=== PATIENT | female | born 1995 | race African-American/Black ===

== ENCOUNTER 2018-06-12 12:07 | Emergency (ER) | payer OTHER, SELFPAY ==
[2018-06-12 12:57] LABS: #Eosinphils 0.1 thou/uL (0.0-0.7); #Lymphocytes 1.4 thou/uL (1.20-3.40); #Monocytes 0.4 thou/uL (0.11-0.59); #Neutrophils 3.4 thou/uL (1.40-6.50); %Basophils 0.6 % (0.0-1.0); %Eosinophils 2.4 % (0.0-10.0); %Monocytes 7.8 % (0.0-10.0); %Neutrophils 63.1 % (42.0-75.0); Hemoglobin 11.9 g/dL (12.0-16.0); Mean Corpuscular HGB CONC 31.8 g/dL (32.0-36.0); Mean Corpuscular Hemoglobin 27.1 pg (27.0-31.0); Mean Corpuscular Volume 85.2 fL (78.0-98.0); Platelet Count 437 thou/uL (130-400); RBC Distribution Width 11.8 % (11.5-14.5); Red Blood Cell (RBC) Count 4.39 mill/uL (4.20-5.40); White Blood Cell (WBC) Count 5.4 thou/uL (4.8-10.8)
[2018-06-12 13:14] LABS: Bilirubin Negative (Negative); Blood, Urine Negative (Negative); Clarity CLEAR (Clear); Glucose, Urine (Dipstick) Negative (Negative); Leukocyte Negative (Negative); Nitrite Negative (Negative); Protein, Urine (Dipstick) Negative (Neg-Trace); Urobilinogen 0.2 mg/dL (0.2-1.0)
[2018-06-12 13:15] LABS: Pregnancy Test - Urine (BHCG) POSITIVE (Negative); Pregu Control Background? CLEAR/WHITE (CLR/WHITE); Pregu Control Bar Appear? YES (CONTROL BAR)
[2018-06-12 13:16] LABS: ALT (SGPT) 13 U/L (8-55); AST (SGOT) 15 U/L (5-34); Albumin 3.9 g/dL (3.5-5.0); Alkaline Phosphatase 55 U/L (40-150); Anion Gap 11 mmol/L (10-20); BUN (Urea Nitrogen) 6 mg/dL (7.0-18.7); Bilirubin, Total 0.5 mg/dL (0.2-1.2); Calc. Creatinine Clearance 0 mL/min (70-130); Calcium 9.1 mg/dL (7.8-10.44); Carbon Dioxide 21 mmol/L (22-29); Chloride 109 mmol/L (98-107); Estimated GFR-MDRD Greater than 90; Globulin 2.9 g/dL (2.4-3.5); Glucose 89 mg/dL (70-105); Potassium 3.7 mmol/L (3.5-5.1); Protein, Total 6.8 g/dL (6.0-8.3); Sodium 137 mmol/L (136-145)
--- NOTE | 2018-06-12 14:16 | ULT ---
PELVIC ULTRASOUND: DATE: 06/12/2018. HISTORY: Positive home test and vaginal bleeding. COMPARISON: None available. FINDINGS: Multiple transabdominal and endovaginal sonographic images of the pelvis are obtained. The uterus is retroverted. There is a small fluid collection seen within the endometrial canal likel y related to a gestational sac. There is a small echogenic focus seen within the fluid collection in the endometrial canal which could potentially represent a tiny pole measuring 0.19 cm. This i s too small to evaluate gestational age of the fetus. No yolk sac is visualized. The mean sac diame ter is 0.6 cm, which corresponds to gestational age by ultrasound of 5 weeks and 2 days. No he art tones are documented at this time. The right ovary measures 2.3 cm x 1.4 cm x 1.2 cm with the left ovary measuring 3.8 cm x 2.3 cm x 2.3 cm. There is a hypoechoic and slightly heterogeneous lesion seen within the left ovary measuring 1. 9 cm in maximal dimensions. This could represent corpus luteal cyst, but continued followup is recom mended. The right ovary has a normal sonographic appearance. Doppler evaluation of each ovary with spectral analysis and color flow evaluation demonstrates arteri al flow in each ovary. A small amount of free fluid is seen in the cul-de-sac. IMPRESSION: 1. Fluid collection within the endometrial canal with a tiny echogenic focus also seen. Findings ma y be related to an early intrauterine gestation, but this cannot be confirmed at this time and by jose n sac diameter the gestational age would be 5 weeks and 2 days. Findings are likely attributable to very early intrauterine gestation, but followup ultrasound examination in 1 week as well as serial be ta HCG levels is recommended as ectopic cannot be excluded based on sonographic evaluation. 2. Probable corpus luteal cyst left ovary, but followup evaluation is recommended. 3. Small amount of free fluid in the cul-de-sac. POS: [facility]
== END 2018-06-12 14:08 | disposition home or self-care (01) ==
LOC: ERS 12:07
DX: O20.0 Threatened abortion (principal); O99.351 Diseases of the nervous system complicating pregnancy, first trimester; G40.909 Epilepsy, unspecified, not intractable, without status epilepticus; O99.511 Diseases of the respiratory system complicating pregnancy, first trimester; J45.909 Unspecified asthma, uncomplicated; I10 Essential (primary) hypertension; Z86.73 Personal history of transient ischemic attack (TIA), and cerebral infarction without residual deficits; Z79.899 Other long term (current) drug therapy; Z3A.01 Less than 8 weeks gestation of pregnancy
CPT/HCPCS: 36415; 76856; 80053; 81003; 81025; 84702; 85025; 86900; 86901

== ENCOUNTER 2018-08-29 18:31 | Emergency (ER) | payer MEDICAID, OTHER ==
[2018-08-29 19:10] LABS: Bilirubin Negative (Negative); Blood, Urine Negative (Negative); Clarity CLOUDY (Clear); Glucose, Urine (Dipstick) Negative (Negative); Leukocyte Negative (Negative); Nitrite Negative (Negative); Protein, Urine (Dipstick) Negative (Neg-Trace)
[2018-08-29 19:39] LABS: #Basophils 0.1 thou/uL (0.0-0.2); #Eosinphils 0.1 thou/uL (0.0-0.7); #Lymphocytes 1.4 thou/uL (1.20-3.40); #Monocytes 0.5 thou/uL (0.11-0.59); #Neutrophils 4.9 thou/uL (1.40-6.50); %Basophils 0.7 % (0.0-1.0); %Eosinophils 1.6 % (0.0-10.0); %Lymphocytes 20.5 % (21.0-51.0); %Monocytes 7.1 % (0.0-10.0); %Neutrophils 70.2 % (42.0-75.0); Hemoglobin 11.3 g/dL (12.0-16.0); Mean Corpuscular HGB CONC 32.8 g/dL (32.0-36.0); Mean Corpuscular Hemoglobin 27.8 pg (27.0-31.0); Mean Corpuscular Volume 84.6 fL (78.0-98.0); Mean Platelet Volume 7.2 fL (7.4-10.4); Platelet Count 376 thou/uL (130-400); Red Blood Cell (RBC) Count 4.08 mill/uL (4.20-5.40)
[2018-08-29 19:58] LABS: ALT (SGPT) 18 U/L (8-55); AST (SGOT) 16 U/L (5-34); Albumin 3.5 g/dL (3.5-5.0); Alkaline Phosphatase 45 U/L (40-150); Anion Gap 9 mmol/L (10-20); BUN (Urea Nitrogen) 8 mg/dL (7.0-18.7); Bilirubin, Total 0.2 mg/dL (0.2-1.2); Calc. Creatinine Clearance 0 mL/min (70-130); Calcium 9.3 mg/dL (7.8-10.44); Carbon Dioxide 26 mmol/L (22-29); Chloride 107 mmol/L (98-107); Estimated GFR-MDRD Greater than 90; Globulin 3.2 g/dL (2.4-3.5); Lipase 17 U/L (8-78); Potassium 3.8 mmol/L (3.5-5.1); Protein, Total 6.7 g/dL (6.0-8.3); Sodium 138 mmol/L (136-145)
[2018-08-29 20:01] LABS: Glucose 57 mg/dL (70-105)
[2018-08-29] MEDS ORDERED: Acetaminophen 500 MG TAB ONE (20:04)
--- NOTE | 2018-08-29 22:30 | ULT ---
OB ULTRASOUND: 08/29/18 HISTORY: Pelvic pain. Real time imaging of the pelvis shows a single viable intrauterine in a predominantly verte x or cephalic presentation. Placenta is anterior in location. Along the more anterior margin of the u terine wall directly beneath the placenta is a 3.7 x 6.2 cm area that is somewhat isoechoic but appea rs separate from the placenta. There does appear to be some flow demonstrate in some areas of this al though it is not all contiguous. I favor that this is probably a contraction, but I cannot exclude th is is an acute abruption. There is no previa demonstrated. Amniotic fluid is adequate for stage of pr egnancy. measurements are follows: BPH 3.2 cm 16 weeks, 0 days Head circumference 11.7 cm 15 weeks, 5 days Abdominal circumference 10.5 cm 16 weeks, 3 days Femur length 2.1 cm 16 weeks, 2 days Evaluation of anatomy was slightly limited but no anomalies detected on this emergent exa m. Three vessel cord and some of the intracranial structures were not well visualized. IMPRESSION: 1. Single viable intrauterine in a more cephalic presentation. Overall measurements co rresponding to a gestational age of 16 weeks, 1 day. Estimated date of delivery is 02/12/19. 2. heart rate 149 beats per minute. 3. Placenta which is anterior in location. No evidence of previa. Along the anterior uterine wal l directly beneath the placenta is an area of altered echogenicity somewhat isoechoic to the placenta and separate. I would favor this probably being a contraction but I cannot exclude this is an abrupt ion. Findings were discussed with Dr. Pennington. POS: [facility]
== END 2018-08-29 22:20 | disposition home or self-care (01) ==
LOC: ERS 18:31
DX: O99.89 Other specified diseases and conditions complicating pregnancy, childbirth and the puerperium (principal); R10.30 Lower abdominal pain, unspecified; O99.352 Diseases of the nervous system complicating pregnancy, second trimester; G40.909 Epilepsy, unspecified, not intractable, without status epilepticus; O99.512 Diseases of the respiratory system complicating pregnancy, second trimester; J45.909 Unspecified asthma, uncomplicated; Z3A.16 16 weeks gestation of pregnancy; Z86.73 Personal history of transient ischemic attack (TIA), and cerebral infarction without residual deficits; Z79.899 Other long term (current) drug therapy
CPT/HCPCS: 36415; 36416; 76815; 80053; 81003; 83690; 84702; 85025; 86900; 86901

== ENCOUNTER 2018-11-10 13:51 | Day surgery (SDC) | payer OTHER ==
[2018-11-10 14:31] VITALS: BP 118/57; TEMP 99.1
[2018-11-10 14:43] VITALS: BMI 34.5
[2018-11-10] MEDS ORDERED: Ondansetron ODT 4 MG TAB PO SCH (15:30)
--- NOTE | 2018-11-10 17:51 | ER ---
DATE OF SERVICE: 11/10/2018 PRESENTING COMPLAINT: Nausea with one episode of emesis at 27-week gestation. HISTORY OF PRESENT ILLNESS: The patient is a 23-year-old, 2, para 1, x1, who sees Dr. Storm. She reports one episode of nausea with mild emesis this afternoon. She reports some mild headache. She reports that she may have had eclampsia versus seizure disorder with her last . 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 PAST MEDICAL HISTORY: Asthma and epilepsy. SURGICAL HISTORY: . ALLERGIES: AUGMENTIN, FLAGYL, ZITHROMAX. MEDICATIONS: 1. Advair. 2. Albuterol. 3. Butalbital. 4. Nifedipine. 5. Raglan. SOCIAL HISTORY: Denies tobacco, alcohol, or IV drug abuse. FAMILY HISTORY: Noncontributory. REVIEW OF SYSTEMS: Noncontributory. LABORATORY DATA: Blood type A positive, antibody negative. Pap negative. Rubella immune. VDRL nonreactive. Hepatitis B, GC, Chlamydia are negative. PHYSICAL EXAMINATION: GENERAL: Black female, resting comfortably, in no acute distress. VITAL SIGNS: Pulse 85, respirations 18, temperature 97.6, blood pressure 118/72. HEENT: Within normal limits. LUNGS: Clear to auscultation bilaterally. HEART: Regular rate and rhythm. ABDOMEN: Soft, nontender in all four quadrants. No rebound or guarding. PELVIC: Vulva is without lesions. Vaginal exam deferred. EXTREMITIES: Without clubbing, cyanosis, or edema. FHTs are 140s. Positive acceleration, no deceleration. No contractions. Category 1 heart rate tracing. The patient was administered Zofran x1 and p.o. liquids. She tolerated this well without emesis. No evidence of preeclampsia was noted. She is to be discharged home with ER precautions, and follow up at [facility] as scheduled in 1 week. Job ID: [id number]
== END 2018-11-10 17:30 | disposition home or self-care (01) ==
LOC: L&D/OP 13:51
PROVIDERS: ATTEND Obstetrics & Gynecology
DX: O21.2 Late vomiting of pregnancy (principal); O99.012 Anemia complicating pregnancy, second trimester; D64.89 Other specified anemias; O99.512 Diseases of the respiratory system complicating pregnancy, second trimester; J45.909 Unspecified asthma, uncomplicated; O99.352 Diseases of the nervous system complicating pregnancy, second trimester; G40.909 Epilepsy, unspecified, not intractable, without status epilepticus; Z3A.27 27 weeks gestation of pregnancy; Z88.1 Allergy status to other antibiotic agents; Z88.8 Allergy status to other drugs, medicaments and biological substances; Z79.82 Long term (current) use of aspirin; Z79.51 Long term (current) use of inhaled steroids; Z79.899 Other long term (current) drug therapy; Z98.890 Other specified postprocedural states
CPT/HCPCS: 99282; Q0162

== ENCOUNTER 2018-12-09 23:56 | Day surgery (SDC) | payer OTHER ==
[2018-12-10 01:04] LABS: Bilirubin Negative (Negative); Blood, Urine Negative (Negative); Clarity CLEAR (Clear); Glucose, Urine (Dipstick) Negative (Negative); Leukocyte Negative (Negative); Nitrite Negative (Negative); Protein, Urine (Dipstick) Negative (Neg-Trace); Specific Gravity, Urine 1.018 (1.002-1.036)
--- NOTE | 2018-12-10 02:44 | SS ---
DATE OF ADMISSION: 12/09/2018 DATE OF DISCHARGE: 12/10/2018 REGULAR PHYSICIAN: Huyen Storm DO. EVALUATING PHYSICIAN: Salvatore Triana MD. CHIEF COMPLAINT: Pain in the vagina, lower abdominal discomfort. HISTORY OF PRESENT ILLNESS: Ms. Nieto is a 23-year-old black, G2, P1-0-0-1 with an estimated date of confinement of 02/10/2019, who presents complaining of a 24-hour history of pain extending into her vagina as well as lower abdominal discomfort. She denies regular contractions, loss of fluid, or vaginal bleeding. Her care has been with Dr. Storm. PAST OBSTETRICAL HISTORY: Includes a reportedly at term that was complicated by a seizure one week . PAST MEDICAL HISTORY: Includes hypertension and asthma. PAST SURGICAL HISTORY: Includes section as above, hernia, and PE tubes in her ears. CURRENT MEDICATIONS: 1. vitamins. 2. Procardia 30 mg daily. 3. Advair on a p.r.n. basis. ALLERGIES: INCLUDE AUGMENTIN, ZITHROMAX, CLINDAMYCIN, AND FLAGYL. SOCIAL HISTORY: Denies tobacco, alcohol, or drug use. FAMILY HISTORY: Unremarkable. REVIEW OF SYSTEMS: Denies nausea, vomiting, fever, chills, ruptured membranes, vaginal bleeding, or change in bowel or bladder habits. PHYSICAL EXAMINATION: VITAL SIGNS: In triage, her blood pressures are 129/70 and 137/65. She is afebrile. GENERAL: She is pleasant and in no acute distress. ABDOMEN: Soft, nontender, and gravid. PELVIC: Shows the pelvic arch to be flat, but her cervix is closed and long. heart rate tracing is stable and reassuring. No significant uterine contractions are seen. Urinalysis returns with a specific gravity of 1.018 with negative protein, negative glucose, negative ketones, negative blood, negative nitrites, and negative leukocyte esterase. ASSESSMENT: 1. A 31-1/7 week intrauterine . 2. No evidence of labor. 3. No evidence of urinary tract infection. PLAN: The patient will be discharged to home. The nature of round ligament pain was discussed with her in detail. She can use Tylenol at home on a p.r.n. basis and she can also use warm tub soaks as well as a heating pad low on her back. She understands all the above and is discharged home in good condition. Job ID: [id number]
== END 2018-12-10 01:39 | disposition home or self-care (01) ==
LOC: L&D/OP 23:56
PROVIDERS: ATTEND Obstetrics & Gynecology
DX: O99.89 Other specified diseases and conditions complicating pregnancy, childbirth and the puerperium (principal); R10.2 Pelvic and perineal pain; R10.30 Lower abdominal pain, unspecified; O16.3 Unspecified maternal hypertension, third trimester; O99.513 Diseases of the respiratory system complicating pregnancy, third trimester; J45.909 Unspecified asthma, uncomplicated; Z3A.31 31 weeks gestation of pregnancy; Z79.899 Other long term (current) drug therapy; Z88.0 Allergy status to penicillin; Z88.1 Allergy status to other antibiotic agents
CPT/HCPCS: 81003; 99282

== ENCOUNTER 2019-01-19 10:04 | Inpatient (IN) | payer OTHER ==
[~2019-01-19 10:04] MED LIST: Dexamethasone 20 MG/5 ML VIAL ONE; Ketorolac Tromethamine 30 MG/ML VIAL ONE; Ondansetron PF 4 MG/2 ML Vial ONE; PHENYLEPHRINE-NS 100 MCG/ML 10 ML SYRINGE ONE; ePHEDrine 50 MG/ML VIAL ONE
[2019-01-19] MEDS ORDERED: Butorphanol Tartrate 1 MG/ML VIAL SLOW IVP PRN (10:28)
[2019-01-19] MEDS ORDERED: Promethazine HCl 25 MG/ML VIAL IM PRN ×2 (10:28→13:44)
[2019-01-19] MEDS ORDERED: Ondansetron PF 4 MG/2 ML Vial IVP PRN ×3 (10:28→15:02)
[2019-01-19] MEDS ORDERED: Acetaminophen 500 MG TAB PO PRN (10:28)
[2019-01-19] MEDS ORDERED: Lactated Ringer's 1,000 ML IV SCH (10:30)
[2019-01-19] MEDS ORDERED: Bicitra 30 ML UDCUP PO SCH (10:30)
--- NOTE | 2019-01-19 10:34 | PDOC.LDHP ---
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 Current gestational age (weeks): 37 Due date: 02/09/19 Dating criteria: first trimester ultrasound Grav: 2 Para: 1 OB History Details: LTCS x1 for failed induction - also PP PRES syndrome/eclampsia Current complications: hypertension Abnormal US findings: Yes (EIF noted on MFM sono, echo and remainder anatomy wnl ) Past Medical History: Anemia, H/O PRES/eclampsia Current medications: pre- vitamins, iron, other (procardia XL 30 mg) Previous surgical history: low tranverse CS Allergies/Adverse Reactions: Allergies Allergy/AdvReac Type Severity Reaction Status Date / Time amoxicillin trihydrate Allergy Verified 01/19/19 10:42 [From Augmentin] azithromycin [From Zithromax] Allergy Verified 01/19/19 10:42 metronidazole [From Flagyl] Allergy Severe Verified 01/19/19 10:42 Hives potassium clavulanate Allergy Verified 01/19/19 10:42 [From Augmentin] Social history: none - Physical Exam Vital signs reviewed and normal: yes General: NAD Heart: RRR Lungs: nonlabored breathing Abdomen: gravid Extremeties: no edema FHT: category 1 (130s, mod wilbert, +accels, no decels) [place] contractions every: none - OB Labs Blood type: A RH: positive Antibody Screen: negative HIV: negative RPR: negative HEPSAg: negative 1 hour GCT: negative GBS: positive Urine drug screen: negative Rubella: immune Additional Labs: SS wnl Heterozygous 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 Monitor BPs. Continue baby ASA due to h/o PP eclampsia and PRES syndrome
[2019-01-19] MEDS ORDERED: CEFAZOLIN 2 GM in Premix Bag 1 BAG IVPB SCH (10:45)
[2019-01-19 11:10] VITALS: BMI 34.9
[2019-01-19 11:44] LABS: Hemoglobin 11.4 g/dL (12.0-16.0); Mean Corpuscular HGB CONC 31.7 g/dL (32.0-36.0); Mean Corpuscular Hemoglobin 26.9 pg (27.0-31.0); Mean Corpuscular Volume 84.7 fL (78.0-98.0); Platelet Count 339 thou/uL (130-400); RBC Distribution Width 12.3 % (11.5-14.5); Red Blood Cell (RBC) Count 4.23 mill/uL (4.20-5.40); White Blood Cell (WBC) Count 7.4 thou/uL (4.8-10.8)
[2019-01-19] MEDS ORDERED: Fentanyl 100 MCG/2 ML VIAL ONE (11:54)
[2019-01-19] MEDS ORDERED: MORPHINE 5 MG/10 ML PF VIAL ONE (11:54)
[2019-01-19] MEDS ORDERED: Ondansetron PF 4 MG/2 ML Vial ONE ×2 (11:55)
[2019-01-19] MEDS ORDERED: PHENYLEPHRINE-NS 100 MCG/ML 10 ML SYRINGE ONE (11:55)
[2019-01-19] MEDS ORDERED: Ketorolac Tromethamine 30 MG/ML VIAL ONE (11:55)
[2019-01-19] MEDS ORDERED: Oxytocin 10 UNITS/ML VIAL ONE (11:55)
[2019-01-19] MEDS ORDERED: ePHEDrine/0.9% NaCl/PF SYRINGE 50 mg/10 ml ONE (11:55)
[2019-01-19 12:13] LABS: ALT (SGPT) 19 U/L (8-55); AST (SGOT) 18 U/L (5-34); Albumin 3.6 g/dL (3.5-5.0); Alkaline Phosphatase 144 U/L (40-150); Anion Gap 12 mmol/L (10-20); BUN (Urea Nitrogen) 7 mg/dL (7.0-18.7); Bilirubin, Total 0.5 mg/dL (0.2-1.2); Calc. Creatinine Clearance 187 mL/min (70-130); Calcium 9.1 mg/dL (7.8-10.44); Carbon Dioxide 23 mmol/L (22-29); Chloride 105 mmol/L (98-107); Estimated GFR-MDRD Greater than 90; Globulin 3.1 g/dL (2.4-3.5); Glucose 78 mg/dL (70-105); Potassium 3.5 mmol/L (3.5-5.1); Protein, Total 6.7 g/dL (6.0-8.3); Sodium 136 mmol/L (136-145)
[2019-01-19 12:27] LABS: HBSAg Index 0.31 S/CO (0-0.99); HIV (1/2) Antibody/Antigen Non-Reactive (NonReactive); HIV 1/2 INDEX 0.14 S/CO (<1.00); Hep B Surf Ag Non-Reactive S/CO (NonReactive); Syphilis Antibody Nonreactive (Nonreactive); Syphilis Antibody Index 0.02 S/CO (<1.00 Non-Reactive)
[2019-01-19] MEDS ORDERED: Dexamethasone 4 mg/ml Vial ONE (13:22)
--- NOTE | 2019-01-19 13:32 | PDOC.OPDEL ---
OB Operative/Delivery Note Delivery Dr/Surgeon: Huyen Storm DO Assist: Meera Saenz PA-C; Bill Starr MD Pre-Delivery Diagnosis: scheduled section Procedure/Post Delivery Dx: repeat low transverse CS Weeks gestation: 37 Anesthesia: spinal - Findings A Sex: male - 1 min: 8 - 5 min: 8 - Additional Findings/Plan Placenta delivered: spontaneous findings: low transverse hysterotomy without extension, normal uterus, normal tubes, normal ovaries, other (4-5 cm uterine window noted prior to hysterotomy) Estimated blood loss: EBL 500 cc; QBL 430 cc Compilations/Other Findings: Thin adhesions from uterus to dome of bladder. in cephalic presentation Clear amniotic fluid Normal placenta transferred to NICU Post delivery plan: routine recovery
[2019-01-19] MEDS ORDERED: Eucerin (Mineral Oil/Petrolatum,White) 30 gm Jar TOP PRN (13:44)
[2019-01-19] MEDS ORDERED: Naloxone HCl 0.4 mg/ml Vial IVP PRN ×2 (13:44)
[2019-01-19] MEDS ORDERED: L&D-Morphine 4 MG/ML VIAL SLOW IVP PRN (13:44)
[2019-01-19] MEDS ORDERED: Naloxone HCl 0.4 mg/ml Vial IV PRN (13:44)
[2019-01-19] MEDS ORDERED: Ondansetron HCl/PF 4 MG/2 ML Vial IVP PRN (13:44)
[2019-01-19] MEDS ORDERED: Meperidine HCl/PF 25 MG/ML VIAL SLOW IVP PRN (13:44)
[2019-01-19] MEDS ORDERED: diphenhydrAMINE 50 MG/ML VIAL IVP PRN (13:44)
[2019-01-19] MEDS ORDERED: Promethazine HCl 25 MG SUPP PR PRN (13:44)
[2019-01-19] MEDS ORDERED: HYDROmorphone 2 MG/ML VIAL SLOW IVP PRN (13:44)
[2019-01-19] MEDS ORDERED: Communication Order-Pharmacy FS SCH (13:45)
[2019-01-19] MEDS ORDERED: Lanolin Ointment 7 GM TUBE TOP PRN (15:02)
[2019-01-19 15:33] LABS: Bilirubin Negative (Negative); Blood, Urine Negative (Negative); Clarity CLEAR (Clear); Glucose, Urine (Dipstick) Negative (Negative); Leukocyte Negative (Negative); Nitrite Negative (Negative); Protein, Urine (Dipstick) Negative (Neg-Trace); Specific Gravity, Urine 1.019 (1.002-1.036); pH, Urine 6.5 (5.0-9.0)
[2019-01-19 15:34] LABS: Bacteria/HPF None Seen HPF (None Seen); Hyaline Casts/LPF 0-3 HYALINE CAST LPF (0-3 Hyaline); RBC/HPF 0-3 HPF (0-3); Squamous Epithelial 0-3 HPF (0-3); WBC/HPF 0-3 HPF (0-3)
[2019-01-19] MEDS ORDERED: Sodium Chloride 0.9% 10 ML ONE (16:27)
[2019-01-19] MEDS ORDERED: Ketorolac Tromethamine 30 MG/ML VIAL IVP PRN (16:38)
[2019-01-19] MEDS: Simethicone Chewable 80 MG TAB PO PRN (21:28)
[2019-01-19] MEDS ORDERED: Ibuprofen 800 MG TAB PO SCH (22:00)
[2019-01-19] MEDS: Docusate Calcium (SURFAK) 240 MG CAP PO SCH (23:00)
[2019-01-19] MEDS: Ferrous Sulfate 325 MG TAB PO SCH (23:00)
[2019-01-20] MEDS ORDERED: Sodium Chloride 0.9% 10 ML ONE (03:07)
[2019-01-20 07:22] LABS: Hemoglobin 10.2 g/dL (12.0-16.0); Mean Corpuscular HGB CONC 33.7 g/dL (32.0-36.0); Mean Corpuscular Hemoglobin 28.5 pg (27.0-31.0); Mean Corpuscular Volume 84.7 fL (78.0-98.0); Mean Platelet Volume 8.3 fL (7.4-10.4); Platelet Count 289 thou/uL (130-400); White Blood Cell (WBC) Count 12.1 thou/uL (4.8-10.8)
--- NOTE | 2019-01-20 08:11 | OP ---
DATE OF PROCEDURE: 01/19/2019 PREOPERATIVE DIAGNOSES: 1. A 37 week intrauterine . 2. Chronic hypertension. 3. History of eclampsia with posterior reversible encephalopathy syndrome. 4. Heterozygous carrier for Fanconi anemia. 5. Asthma. 6. History of low-transverse delivery x1. Declines trial of labor. POSTOPERATIVE DIAGNOSES: 1. A 37 week intrauterine . 2. Chronic hypertension. 3. History of eclampsia with posterior reversible encephalopathy syndrome. 4. Heterozygous carrier for Fanconi anemia. 5. Asthma. 6. History of low-transverse delivery x1. Declines trial of labor. PROCEDURE PERFORMED: Repeat low-transverse delivery via Pfannenstiel skin incision. ASSISTS: 1. Meera Saenz PA-C. 2. Bill Starr MD. ANESTHESIA: Spinal. COMPLICATIONS: None. QBL: 430 mL. FINDINGS: Dense adhesions along the fascia, thin adhesions from the lower uterine segment to the dome of the bladder and normal-appearing uterus, fallopian tubes , and ovaries bilaterally with the exception of a 4-5 cm uterine window at the previous hysterotomy site. Clear amniotic fluid. Viable male infant in cephalic presentation, apgras 8/8. Normal-appearing placenta. INDICATIONS FOR THE PROCEDURE: Ms. 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 The patient was evaluated by MFM due to her previous history and due to chronic hypertension, was recommended to have a delivery at 37 weeks. The patient was counseled on delivery options and preferred a repeat delivery rather than a trial of labor and was counseled on such. DESCRIPTION OF PROCEDURE: The patient was brought to the operating room, she was placed under spinal anesthesia and placed in supine position with a leftward tilt. A Shea catheter was placed. She was given Ancef for a surgical prophylaxis. A Pfannenstiel skin incision was made removing the previous scar tissue. This was taken down to the underlying fascia layer. The fascia was then extended bilaterally using Gupta scissors. The superior aspect of fascial incision was grasped using Alexandre clamps and dissected free from the underlying rectus muscles using Gupta scissors. The same was done to the inferior aspect of the fascial incision. The peritoneum was then elevated with hemostats and incised and the incision was extended using blunt dissection. An Sky O retractor was placed into the abdomen. There was a uterine window noted. A bladder flap was created using Metzenbaum scissors. A low transverse hysterotomy was made. The hysterotomy was extended with blunt dissection. Amniotic membranes were ruptured noting clear amniotic fluid. was delivered in cephalic presentation. The cord was clamped and cut. was handed to the waiting neonatology team. Cord sample and cord blood were obtained. Cord sample was obtained for testing of the for Fanconi anemia carrier screening since the father of the baby was not able to be tested. The placenta was delivered spontaneously intact. The uterus was cleared of all clot and debris. The hysterotomy was closed in a running locking fashion. There was a small area along the right aspect that required an additional [id number] stitch for hemostasis. The pelvis was irrigated and cleared of all clot and debris. The fallopian tubes and ovaries were evaluated and normal in appearance. The Sky O retractor was removed from the abdomen. The peritoneum was closed in a running fashion using 2-0 chromic. The rectus abdominis muscles were evaluated and hemostatic. The fascia was closed from bilateral apices meeting in the midline using 0 Monocryl. The subcutaneous layer was copiously irrigated and hemostatic with the use of Bovie. The subcutaneous layer was closed using 0 Vicryl and the skin was closed using 4-0 Monocryl and Dermabond. The patient tolerated the procedure well. There were no complications. The mother was transferred to routine recovery. was transferred to the NICU due to respiratory distress at , possibly transient tachypnea of the . All counts were correct x 3. Job ID: [id number] [facility]
--- NOTE | 2019-01-20 08:32 | PDOC.PP ---
Post Progress Note Post Day #: 1 Subjective: Pt seen and evaluated PPD1. Patient having mild abdominal soreness. Minimal lochia. She is up and ambulatory. NO problems urination. She is eating and drinking. Baby is in the NICU so she is pumping breast milk at this time. PO intake tolerated: yes Flatus: yes Ambulation: yes Vital Signs (12 hours) Temp Pulse Resp BP Pulse Ox 01/20/19 08:14 97.6 F 72 20 103/60 94 L 01/20/19 04:30 97.7 F 73 18 108/61 01/20/19 00:40 98.0 F 65 18 113/56 L 96 Weight Weight 191 lb - Physical Examination General: NAD Respiratory: non-labored breathing Abdominal: + bowel sounds, lochia, no distention, appropriately TTP Fundus firm & at: 2 cm below umbilicus Extremities: negative homans (B) Skin: CS incision dry & intact, no rash Neurological: no gross focal deficits Psychiatric: A&Ox3, normal affect Result Diagrams: 01/20/19 07:02 01/19/19 11:32 Additional Labs: Post Labs Blood Type A POSITIVE 01/19/19 11:32 Hep Bs Antigen Non-Reactive S/CO (NonReactive) 01/19/19 11:32 (1) delivery delivered Code(s): O82 - ENCOUNTER FOR DELIVERY WITHOUT INDICATION Status: Acute - Assessment/Plan PPD1. PT is doing well. VSSAF. Pt is normotensive. Her CBC was reviewed and H&H are stable. PT is pumping at this time as baby is in the NICU. Pain is well controlled at this time.
[2019-01-20] MEDS ORDERED: Adacel (T-DAP) 0.5 ML SYRINGE IM ONE (09:00)
[2019-01-20] MEDS: Ferrous Sulfate 325 MG TAB PO SCH ×2 (09:30→22:16)
[2019-01-20] MEDS: NIFEdipine XL 30 MG TAB PO SCH (09:44)
[2019-01-20] MEDS: Docusate Calcium (SURFAK) 240 MG CAP PO SCH ×2 (09:45→23:42)
[2019-01-20] MEDS: HYDROcodone/Acetaminophen 5/325 mg Tablet PO PRN ×2 (13:50→20:14)
[2019-01-20] MEDS: Simethicone Chewable 80 MG TAB PO PRN (13:51)
[2019-01-20] MEDS: Ibuprofen 800 MG TAB PO SCH ×2 (15:25→23:42)
[2019-01-21] MEDS: HYDROcodone/Acetaminophen 5/325 mg Tablet PO PRN ×4 (04:40→23:02)
[2019-01-21] MEDS: Ibuprofen 800 MG TAB PO SCH ×3 (06:29→23:04)
--- NOTE | 2019-01-21 08:05 | PDOC.PP ---
Post Progress Note Post Day #: 2 Subjective: Pain minimal-moderate. Ambulating. Voiding. Pumping. Minimal lochia. PO intake tolerated: yes Flatus: yes Ambulation: yes Vital Signs (12 hours) Temp Pulse Resp BP 01/21/19 04:35 97.6 F 67 18 111/66 01/20/19 23:45 97.9 F 64 18 112/60 Weight Weight 191 lb - Physical Examination General: NAD Cardiovascular: RRR Respiratory: non-labored breathing Abdominal: no distention, appropriately TTP Fundus firm & at: below umbilicus Extremities: negative homans (B) Skin: no rash Neurological: no gross focal deficits Psychiatric: normal affect Result Diagrams: 01/20/19 07:02 01/19/19 11:32 Additional Labs: Post Labs Blood Type A POSITIVE 01/19/19 11:32 Hep Bs Antigen Non-Reactive S/CO (NonReactive) 01/19/19 11:32 (1) Chronic hypertension Code(s): I10 - ESSENTIAL (PRIMARY) HYPERTENSION Status: Acute (2) delivery delivered Code(s): O82 - ENCOUNTER FOR DELIVERY WITHOUT INDICATION Status: Acute - Assessment/Plan PPD2 VSSAF BPs wnl. Continue Procardia. No preE sx. Restart ASA 81 mg due to h/o PP eclampsia. Infant still in NICU, plan to continue PP care and d/c in 1-2 days due to in NICU.
[2019-01-21] MEDS: NIFEdipine XL 30 MG TAB PO SCH (10:15)
[2019-01-21] MEDS: Ferrous Sulfate 325 MG TAB PO SCH ×2 (10:16→22:48)
[2019-01-21] MEDS: Aspirin 81 mg Enteric Coated Tablet PO SCH (10:16)
[2019-01-21] MEDS: Docusate Calcium (SURFAK) 240 MG CAP PO SCH ×2 (10:16→23:03)
[2019-01-22] MEDS: Ibuprofen 800 MG TAB PO SCH ×4 (01:09→21:39)
[2019-01-22] MEDS: HYDROcodone/Acetaminophen 5/325 mg Tablet PO PRN ×3 (03:07→19:41)
--- NOTE | 2019-01-22 08:15 | PDOC.PP ---
Post Progress Note Post Day #: 3 Subjective: Minimal pain or lochia. BPs wnl. Denies preE sx. Pumping and breast feeding. Infant still in NICU. PO intake tolerated: yes Flatus: yes Ambulation: yes Vital Signs (12 hours) Temp Pulse Resp BP Pulse Ox 01/21/19 23:03 98.1 F 98 18 129/79 99 Weight Weight 191 lb - Physical Examination General: NAD Cardiovascular: RRR Respiratory: non-labored breathing Abdominal: no distention, appropriately TTP Fundus firm & at: below umbilicus Extremities: negative homans (B) Skin: CS incision dry & intact, no rash Neurological: no gross focal deficits Psychiatric: A&Ox3, normal affect Result Diagrams: 01/20/19 07:02 01/19/19 11:32 Additional Labs: Post Labs Blood Type A POSITIVE 01/19/19 11:32 Hep Bs Antigen Non-Reactive S/CO (NonReactive) 01/19/19 11:32 (1) Chronic hypertension Code(s): I10 - ESSENTIAL (PRIMARY) HYPERTENSION Status: Acute (2) delivery delivered Code(s): O82 - ENCOUNTER FOR DELIVERY WITHOUT INDICATION Status: Acute - Assessment/Plan PPD3 VSSAF Continue Procardia XL 30 mg QD and ASA 81 mg due to h/o PP eclampsia Plan for d/c tomorrow due to still in NICU and breast feeding.
[2019-01-22] MEDS: Aspirin 81 mg Enteric Coated Tablet PO SCH (08:55)
[2019-01-22] MEDS: Docusate Calcium (SURFAK) 240 MG CAP PO SCH ×2 (08:55→21:39)
[2019-01-22] MEDS: Ferrous Sulfate 325 MG TAB PO SCH ×2 (08:56→21:38)
[2019-01-22] MEDS: NIFEdipine XL 30 MG TAB PO SCH (09:00)
[2019-01-23] MEDS: HYDROcodone/Acetaminophen 5/325 mg Tablet PO PRN ×2 (01:46→06:27)
[2019-01-23] MEDS: Ibuprofen 800 MG TAB PO SCH ×2 (06:27→14:03)
[2019-01-23 08:07] VITALS: BP 113/61; TEMP 97.9
--- NOTE | 2019-01-23 08:25 | PDOC.PP ---
Post Progress Note Post Day #: 4 Subjective: Minimal-moderate pain with activity. Denies F/C. No preE sx. BPs wnl. Pumping. Infant now in NBN. Minimal lochia. PO intake tolerated: yes Flatus: yes Ambulation: yes Vital Signs (12 hours) Temp Pulse Resp BP Pulse Ox 01/23/19 08:06 97.9 F 75 20 113/61 96 Weight Weight 191 lb - Physical Examination General: NAD Cardiovascular: RRR Respiratory: non-labored breathing Abdominal: no distention, appropriately TTP Fundus firm & at: below umbilicus Extremities: negative homans (B) Skin: CS incision dry & intact, no rash Neurological: no gross focal deficits Psychiatric: A&Ox3, normal affect Result Diagrams: 01/20/19 07:02 01/19/19 11:32 Additional Labs: Post Labs Blood Type A POSITIVE 01/19/19 11:32 Hep Bs Antigen Non-Reactive S/CO (NonReactive) 01/19/19 11:32 (1) Chronic hypertension Code(s): I10 - ESSENTIAL (PRIMARY) HYPERTENSION Status: Acute (2) delivery delivered Code(s): O82 - ENCOUNTER FOR DELIVERY WITHOUT INDICATION Status: Acute - Assessment/Plan PPD4 VSSAF Meeting requirements for d/c and not infant in NBN. Plan for d/c home today with f/u 2 weeks incision and BP check. Continue Procardia and ASA PP due to hx.
[2019-01-23] MEDS: Docusate Calcium (SURFAK) 240 MG CAP PO SCH (09:19)
[2019-01-23] MEDS: Aspirin 81 mg Enteric Coated Tablet PO SCH (09:19)
[2019-01-23] MEDS: NIFEdipine XL 30 MG TAB PO SCH (09:19)
[2019-01-23] MEDS: Ferrous Sulfate 325 MG TAB PO SCH (09:23)
== END 2019-01-23 15:25 | disposition home or self-care (01) | DRG 787 ==
LOC: L&D 10:04 → 3SW 15:57
PROVIDERS: ADMIT Obstetrics & Gynecology; ATTEND Obstetrics & Gynecology
PROC: 10D00Z1 Extraction of Products of Conception, Low, Open Approach (ICD-10-PCS; principal; 2019-01-19)
DX: O34.211 Maternal care for low transverse scar from previous cesarean delivery (principal); O10.92 Unspecified pre-existing hypertension complicating childbirth; O99.02 Anemia complicating childbirth; D64.89 Other specified anemias; O99.52 Diseases of the respiratory system complicating childbirth; Z3A.37 37 weeks gestation of pregnancy; Z37.0 Single live birth; J45.909 Unspecified asthma, uncomplicated
CPT/HCPCS: 36415; 51702; 80053; 81001; 85027; 86780; 86850; 86900; 86901; 87340; 87389; J0690; J1100; J1200; J1885; J2270; J2310; J2405; J2550; J2590; J3010; J3490

== ENCOUNTER 2019-10-02 16:39 | Day surgery (SDC) | payer OTHER ==
[2019-10-02] MEDS ORDERED: hydrALAZINE 20 MG/ML VIAL SLOW IVP PRN (17:02)
[2019-10-02 17:16] VITALS: BMI 36.2
--- NOTE | 2019-10-02 18:11 | ULT ---
EXAM: US OB Ltd PROVIDED CLINICAL HISTORY: Abdominal trauma in a patient with 32 week gestation. COMPARISON: None FINDINGS: There is evidence of a single intrauterine gestation in cephalic presentation. Cardiac Doppler does d emonstrates heart tones with a heart rate of 137 bpm. The placenta is located posteriorly without evidence of placenta previa. There are no findings to suggest a retroplacental he morrhage based on the provided sonographic images. Leading edge of the placenta in relation to the the head as well as cervical os is difficult to determine on this exam. There is prominent shad owing from the head limiting evaluation of the lower uterine segment. Subjectively, there is decrease in amniotic fluid volume, there is also decrease in amniotic fluid index measuring 6.1 cm. measurements: Biparietal diameter 7.6 cm, 30 weeks 3 days Head circumference 28.51 cm, 31 weeks 2 days Abdominal circumference 27.96 cm, 32 weeks Femur length 5.79 cm, 30 weeks 2 days The estimated gestational age by ultrasound is 31 weeks with GALDINO on 12/04/2019. Gestational age by the last menstrual period is 31 weeks and 5 days. Estimated weight by ultrasound is 1737 g (3 pounds, 13 ounces). This represents 26 percentile f or weight. Amniotic fluid index measures 6.1 cm which is diminished. This examination was not performed for evaluation of the anatomical structures. IMPRESSION: 1. Decreased amniotic fluid volume with diminished amniotic fluid index of 6.1 cm suggesting oligohyd ramnios. 2. Single intrauterine gestation in cephalic presentation with heart tones documented. Gestatio nal age by ultrasound is 31 weeks with GALDINO on 12/04/2019. 3. Estimated weight by ultrasound is 1737 g (3 pounds, 13 ounces). 4. Above findings were discussed with Berkley, labor and delivery nurse, on 10/02/2019 at 1808 hours
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
== END 2019-10-02 18:24 | disposition home health service (06) ==
LOC: L&D/OP 16:39
PROVIDERS: ATTEND Obstetrics & Gynecology
DX: O9A.213 Injury, poisoning and certain other consequences of external causes complicating pregnancy, third trimester (principal); S39.91XA Unspecified injury of abdomen, initial encounter; O99.353 Diseases of the nervous system complicating pregnancy, third trimester; G40.909 Epilepsy, unspecified, not intractable, without status epilepticus; O34.219 Maternal care for unspecified type scar from previous cesarean delivery; O10.913 Unspecified pre-existing hypertension complicating pregnancy, third trimester; O35.8XX0 Maternal care for other (suspected) fetal abnormality and damage, not applicable or unspecified; W50.1XXA Accidental kick by another person, initial encounter; Y99.0 Civilian activity done for income or pay; Z3A.31 31 weeks gestation of pregnancy; Z67.10 Type A blood, Rh positive; Z79.899 Other long term (current) drug therapy; Z88.0 Allergy status to penicillin; Z88.1 Allergy status to other antibiotic agents; Z88.3 Allergy status to other anti-infective agents
CPT/HCPCS: 76815; 99282

== ENCOUNTER 2019-10-11 10:28 | Day surgery (SDC) | payer OTHER ==
[2019-10-11 11:12] VITALS: BP 120/56; TEMP 98.6; BMI 36.2
[2019-10-11] MEDS ORDERED: hydrALAZINE 20 MG/ML VIAL SLOW IVP PRN (11:31)
[2019-10-11 12:18] LABS: Bilirubin Negative (Negative); Blood, Urine Negative (Negative); Clarity Clear (Clear); Glucose, Urine (Dipstick) Normal (Negative); Leukocyte 25 Leu/uL (Negative); Nitrite Negative (Negative); Protein, Urine (Dipstick) 20 mg/dL (Neg-Trace); Squamous Epithelial 0-3 HPF (0-3); WBC/HPF 0-3 HPF (0-3)
--- NOTE | 2019-10-11 12:21 | ULT ---
Exam: Ultrasound biophysical profile: COMPARISON: 10/02/2019 HISTORY: Decreased motion Single viable intrauterine fetus in vertex presentation. Placenta is posterior. Amniotic fluid index equals 11.6 cm. heart rate 136 bpm. biophysical profile score 8/8, normal IMPRESSION: Normal biophysical profile score 8/8.
[2019-10-11 12:22] LABS: Bacteria/HPF 1+ HPF (None Seen)
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
[2019-10-11 12:23] LABS: Urine Culture Reflex Yes Yes
--- NOTE | 2019-10-11 12:52 | PDOC.BPN ---
- Brief Progress Note BPP/NST 06/18 VP3 done for some vaginal discharge visible on spec exam. Cervix showed some mild irritability on sterile spec, no active bleeding VP3 checked. Cervix closed. Plan for DC to home and f/u on urine culture results as well as VP3 results. Return precautions reviewed and pt agreeable. Will DC to home.
== END 2019-10-11 12:58 | disposition home health service (06) ==
LOC: L&D/OP 10:28
PROVIDERS: ATTEND Obstetrics & Gynecology
DX: O36.8130 Decreased fetal movements, third trimester, not applicable or unspecified (principal); O46.93 Antepartum hemorrhage, unspecified, third trimester; O99.613 Diseases of the digestive system complicating pregnancy, third trimester; J45.909 Unspecified asthma, uncomplicated; Z3A.33 33 weeks gestation of pregnancy; Z86.73 Personal history of transient ischemic attack (TIA), and cerebral infarction without residual deficits; Z79.82 Long term (current) use of aspirin; Z79.899 Other long term (current) drug therapy; Z88.0 Allergy status to penicillin; Z88.8 Allergy status to other drugs, medicaments and biological substances; Z88.1 Allergy status to other antibiotic agents
CPT/HCPCS: 76819; 81001; 87086; 87480; 87510; 87660; 99285

== ENCOUNTER 2019-11-10 05:22 | Inpatient (IN) | payer OTHER ==
--- NOTE | 2019-11-09 14:38 | PDOC.LDHP ---
Labor and Delivery H&P Chief complaint: scheduled section HPI: 24 yo @ 37w2d by LMP c/w 12 week CRL who presents for RCS and RRS. RFs: FGR (9% on MFM sono on 10/12/19), Microcephaly (MFM sono with slight microcephaly, however, cephalic index wnl and remainder of anatomy wnl), EtOH exposure in early , seizure d/o on Keppra, CSx2, short interval (last CS in 01/2019), CHTN - taking ASA, carrier of fanconi anemia, controlled asthma, H/O post- eclampsia/PRES syndrome with first . Current gestational age (weeks): 37 Due date: 11/29/19 Dating criteria: last menstrual period Grav: 3 Para: 2 OB History Details: 2 CS - see detail in HPI regarding RFs Current complications: other (RFs: FGR (9% on MFM sono on 10/12/19), Microcephaly (MFM sono with slight microcephaly, however, cephalic index wnl and remainder of anatomy wnl), EtOH exposure in early , seizure d/ o on Keppra, CSx2, short interval (last CS in 01/2019), CHTN - taking ASA, carrier of fanconi anemia, controlled asthma, H/O post- eclampsia/ PRES syndrome. B) Abnormal US findings: Yes (FGR, microcephaly ) Past Medical History: CHTN Seizure d/o Carrier Fanconi Anemia Controlled asthma H/O post- eclampsia/PRES syndrome Current medications: pre-andi vitamins, other (Keppra 1000 mg QD ASA 81 mg QD Folic acid 4 mg QD Albuterol PRN) Previous surgical history: low tranverse CS (x2), other (umbilical hernia repair ) Allergies/Adverse Reactions: Allergies Allergy/AdvReac Type Severity Reaction Status Date / Time amoxicillin trihydrate Allergy Verified 11/10/19 06:19 [From Augmentin] azithromycin [From Zithromax] Allergy Verified 11/10/19 06:19 metronidazole [From Flagyl] Allergy Severe Verified 11/10/19 06:19 Hives potassium clavulanate Allergy Verified 11/10/19 06:19 [From Augmentin] Social history: alcohol use (in early prior to knowing ) - Physical Exam Vital signs reviewed and normal: yes General: NAD Heart: RRR Lungs: nonlabored breathing Abdomen: gravid Extremeties: no edema FHT: category 1 (130s, mod wilbert, +accels, no decels) [place] contractions every: irritability - OB Labs Blood type: A RH: positive Antibody Screen: negative HIV: negative RPR: negative HEPSAg: negative 1 hour GCT: negative GBS: negative Urine drug screen: negative Rubella: immune Additional Labs: NIPT, ms AFP wnl Carrier for fanconi anemia TORCH screening negative with exception of + HSV (no h/o genital infection) - Assessment 24 yo @ 37w2d admitted for RCS with RRS FGR Microcephaly (MFM sono with slight microcephaly, however, cephalic index wnl and remainder of anatomy wnl) EtOH exposure in early Seizure d/o on Keppra CSx2 Short interval (last CS in 01/2019) CHTN - taking ASA Carrier of fanconi anemia Controlled asthma H/O post- eclampsia/PRES syndrome - Plan Plan: admit to L&D, to OR for section, informed consent obtained, anesthesia consult for pain management -: Will inform NICU for findings on sono - NIPT and msAFP wnl Pt has elected to have risk reducing salpingectomy which was approved by ethics committee due to family h/o breast cancer. She understands that this also leads to permanent sterilization.
[2019-11-10] MEDS ORDERED: Ondansetron PF 4 MG/2 ML Vial IVP PRN ×2 (06:08→08:19)
[2019-11-10] MEDS ORDERED: hydrALAZINE 20 MG/ML VIAL SLOW IVP PRN ×2 (06:08→09:37)
[2019-11-10] MEDS ORDERED: Butorphanol Tartrate 1 MG/ML VIAL SLOW IVP PRN (06:08)
[2019-11-10] MEDS ORDERED: Acetaminophen 500 MG TAB PO PRN (06:08)
[2019-11-10] MEDS ORDERED: CEFAZOLIN 2 GM in Premix Bag 1 BAG IVPB SCH (06:08)
[2019-11-10] MEDS ORDERED: Bicitra 30 ML UDCUP PO SCH (06:08)
[2019-11-10] MEDS ORDERED: Promethazine HCl 25 MG/ML VIAL IM PRN ×2 (06:08→08:19)
[2019-11-10 06:19] LABS: Hemoglobin 10.3 g/dL (12.0-16.0); Mean Corpuscular HGB CONC 33.2 g/dL (32.0-36.0); Mean Corpuscular Hemoglobin 27.7 pg (27.0-31.0); Mean Corpuscular Volume 83.5 fL (78.0-98.0); Mean Platelet Volume 8.2 fL (7.4-10.4); Platelet Count 328 thou/uL (130-400); Red Blood Cell (RBC) Count 3.72 mill/uL (4.20-5.40); White Blood Cell (WBC) Count 6.2 thou/uL (4.8-10.8)
[2019-11-10 06:23] VITALS: BMI 37.6
[2019-11-10] MEDS ORDERED: Famotidine/PF 20 mg/2ml Vial ONE (06:33)
[2019-11-10] MEDS ORDERED: Oxytocin 10 UNITS/ML VIAL ONE ×2 (06:49→08:01)
[2019-11-10] MEDS ORDERED: MORPHINE 5 MG/10 ML PF VIAL ONE (06:49)
[2019-11-10] MEDS ORDERED: Bicitra 30 ML UDCUP ONE (06:56)
[2019-11-10 06:58] LABS: HBSAg Index 0.26 S/CO (0-0.99); HIV (1/2) Antibody/Antigen Non-Reactive (NonReactive); HIV 1/2 INDEX 0.08 S/CO (<1.00); Hep B Surf Ag Non-Reactive S/CO (NonReactive); Syphilis Antibody Nonreactive (Nonreactive); Syphilis Antibody Index 0.03 S/CO (<1.00 Non-Reactive)
[2019-11-10] MEDS ORDERED: Clindamycin/D5W 900 mg/50 ml Premix Bag ONE (07:09)
[2019-11-10] MEDS: Lactated Ringer's 1,000 ML IV SCH ×3 (07:14→18:58)
[2019-11-10] MEDS ORDERED: Clindamycin/D5W 900 MG in Premix Bag 1 BAG IVPB SCH (07:15)
[2019-11-10] MEDS ORDERED: Gentamicin Sulfate 120 MG in Premix Bag 1 BAG IVPB SCH (07:15)
[2019-11-10] MEDS ORDERED: Gentamicin Sulfate 80 MG in Premix Bag 1 BAG IVPB SCH (07:30)
[2019-11-10] MEDS ORDERED: Meperidine HCl/PF 25 MG/ML VIAL SLOW IVP PRN (08:19)
[2019-11-10] MEDS ORDERED: Naloxone HCl 0.4 mg/ml Vial IV PRN (08:19)
[2019-11-10] MEDS ORDERED: HYDROmorphone 2 MG/ML VIAL SLOW IVP PRN (08:19)
[2019-11-10] MEDS ORDERED: Promethazine HCl 25 MG SUPP PR PRN (08:19)
[2019-11-10] MEDS ORDERED: Ondansetron HCl/PF 4 MG/2 ML Vial IVP PRN (08:19)
[2019-11-10] MEDS ORDERED: L&D-Morphine 4 MG/ML VIAL SLOW IVP PRN (08:19)
[2019-11-10] MEDS ORDERED: diphenhydrAMINE 50 MG/ML VIAL IVP PRN (08:19)
[2019-11-10] MEDS ORDERED: Naloxone HCl 0.4 mg/ml Vial IVP PRN ×2 (08:19)
[2019-11-10] MEDS ORDERED: Communication Order-Pharmacy FS SCH (08:30)
--- NOTE | 2019-11-10 08:52 | PDOC.OPDEL ---
OB Operative/Delivery Note Delivery Dr/Surgeon: Huyen Storm DO Assist: LYNNETTE Ramon Pre-Delivery Diagnosis: scheduled section (+ RRS (see list of indications)) Procedure/Post Delivery Dx: repeat low transverse CS (+ RRS) Weeks gestation: 37 Anesthesia: spinal - Findings A Sex: male - 1 min: 8 - 5 min: 9 - Additional Findings/Plan Placenta delivered: spontaneous findings: low transverse hysterotomy without extension, normal uterus, normal tubes, normal ovaries, other (Dense scar along fascia) Estimated blood loss: QBL 340 cc Compilations/Other Findings: Dense scar along fascia and rectus muscles, also along midline. Large uterine window across entire BACILIO and approx 4 cm in width Normal appearing adnexa Normal appearing placenta Post delivery plan: routine recovery
[2019-11-10] MEDS ORDERED: Bisacodyl 10 MG SUPP PR PRN (09:37)
[2019-11-10] MEDS ORDERED: Misoprostol 200 MCG TAB PR PRN (09:37)
[2019-11-10] MEDS ORDERED: Zolpidem Tartrate 5 MG TAB PO PRN (09:37)
[2019-11-10] MEDS ORDERED: Acetaminophen 325 MG TAB PO PRN (09:37)
[2019-11-10] MEDS ORDERED: Simethicone Chewable 80 MG TAB PO PRN (09:37)
[2019-11-10] MEDS ORDERED: NS / Oxytocin 40 units/1000ml 1,000 ML ONE (09:54)
[2019-11-10] MEDS ORDERED: Metoclopramide HCl 10 MG/2 ML VIAL ONE (09:55)
[2019-11-10] MEDS ORDERED: Ondansetron PF 4 MG/2 ML Vial ONE (09:55)
[2019-11-10] MEDS ORDERED: Ketorolac Tromethamine 30 MG/ML VIAL ONE (09:55)
[2019-11-10] MEDS ORDERED: PHENYLEPHRINE-NS 100 MCG/ML 10 ML SYRINGE ONE (09:55)
--- NOTE | 2019-11-10 10:49 | OP ---
DATE OF PROCEDURE: 11/10/2019 PREOPERATIVE DIAGNOSES: 1. A 37-week 2-day intrauterine . 2. Previous x2 with a short interval . 3. growth restriction at 9th percentile. 4. microcephaly (otherwise normal-appearing anatomy and negative genetic screening). 5. Alcohol exposure in early . 6. Seizure disorder, on Keppra. 7. Chronic hypertension, however, controlled during this . 8. Carrier of Fanconi anemia. 9. Controlled asthma. 10. History of eclampsia/posterior reversible encephalopathy syndrome. 11. Family history of breast cancer and desires risk-reducing salpingectomy as well as permanent sterilization. POSTOPERATIVE DIAGNOSES: 1. A 37-week 2-day intrauterine . 2. Previous x2 with a short interval . 3. growth restriction at 9th percentile. 4. microcephaly (otherwise normal-appearing anatomy and negative genetic screening). 5. Alcohol exposure in early . 6. Seizure disorder, on Keppra. 7. Chronic hypertension, however, controlled during this . 8. Carrier of Fanconi anemia. 9. Controlled asthma. 10. History of eclampsia/posterior reversible encephalopathy syndrome. 11. Family history of breast cancer and desires risk-reducing salpingectomy as well as permanent sterilization. PROCEDURE PERFORMED: 1. A repeat low-transverse delivery via Pfannenstiel skin incision. 2. Risk-reducing bilateral salpingectomy. SURGEON: Huyen Storm DO POWER DISTRIBUTOR: Meera Saenz PA-C COMPLICATIONS: None. ANESTHESIA: Spinal with Duramorph. QUANTITATIVE BLOOD LOSS: 340 mL URINARY OUTPUT: 50 mL of clear urine. IV FLUIDS: 1500 mL of crystalloid. INDICATIONS FOR PROCEDURE: Ms. Barbi Nieto is a 24-year-old, G3, P2, at 37 weeks and 2 days by LMP, consistent with a 12-week ultrasound, who presents for a repeat low transverse delivery and a risk-reducing salpingectomy. Her risk factors include growth restriction, macrosomia, alcohol exposure in early , seizure disorder, C-sections x2, short interval , chronic hypertension, carrier of Fanconi anemia, controlled asthma, history of eclampsia/PRES syndrome, and desires risk-reducing salpingectomy. PROCEDURE IN DETAIL: The patient was brought to the operating room. She was placed under spinal anesthesia using Duramorph. She was placed in the supine position with a leftward tilt. A Shea catheter was placed. The abdomen was prepped and draped in a sterile fashion. The anesthesia was assessed and proven to be adequate. She was given clindamycin and gentamicin for surgical prophylaxis. An official time -out was performed. A Pfannenstiel skin incision was made using the scalpel, removing the previous scar tissue. This was carried down to the underlying fascia layer. The fascia was incised in the midline, extended bilaterally using Gupta scissors. The superior aspect of the fascial incision was grasped using Alexandre clamps, tented upward, and dissected free from the underlying rectus abdominis muscles and the same was done to the inferior aspect of the fascial incision. There was dense scar along the fascia and the rectus and along the midline. The rectus muscles were sharply along the midline and the peritoneum was grasped using hemostats, elevated and incised using Metzenbaum scissors and the peritoneal incision was extended using both sharp and blunt dissection. There were adhesions from the dome of the bladder to ther peritoneum requiring dissection using sharp dissection. The Sky O retractor was then placed in the abdomen. A bladder flap was created. A large uterine window was note across the entire BACILIO and approx 4 cm in width. A low transverse hysterotomy was made using the scalpel through the window. This was extended using blunt dissection. Amniotic membranes were ruptured upon entry noting clear amniotic fluid. The was noted to be in cephalic presentation, was delivered without difficulty. 's cord was clamped and cut. The infant was handed to waiting neonatology team. Cord sample and cord blood were obtained. The placenta was delivered spontaneously intact. The uterus was cleared of all clot and debris. The hysterotomy was closed in a running locking fashion using one Monocryl. The adnexa were evaluated, normal in appearance. A bilateral salpingectomy was performed by grasping the fallopian tube with a jonnathan, creating a window in the avascular plane and using hemostats and plan gut suture to ligate. This was performed bilaterally with good hemostasis. The pelvis was then irrigated and cleared of all clot and debris. The peritoneum was closed in a running fashion using 3-0 chromic. The rectus abdominis muscles were hemostatic with use of the Bovie. The fascia was closed in running fashion using 0 PDS. The subcutaneous layer was copiously irrigated and hemostatic using the Bovie. Subcutaneous layer was closed using 3-0 Vicryl and the skin was closed using 4-0 Monocryl and Dermabond. The patient tolerated the procedure well. There were no complications. All counts were correct x3. Job ID: [id number] MTDD
[2019-11-10] MEDS: Prenatal Vitamin 1 TAB PO SCH (11:59)
[2019-11-10] MEDS: Ibuprofen 800 MG TAB PO SCH ×2 (15:46→21:19)
[2019-11-10] MEDS ORDERED: Ketorolac Tromethamine 30 MG/ML VIAL IVP PRN (16:00)
[2019-11-10] MEDS: diphenhydrAMINE 25 MG CAP PO PRN ×2 (16:05→21:19)
[2019-11-10] MEDS: Ferrous Sulfate 325 MG TAB PO SCH (20:32)
[2019-11-10] MEDS: HYDROcodone/Acetaminophen 5/325 mg Tablet PO PRN (21:19)
[2019-11-10] MEDS: Docusate Calcium (SURFAK) 240 MG CAP PO SCH (21:19)
[2019-11-11] MEDS: Ibuprofen 800 MG TAB PO SCH ×3 (04:46→22:44)
[2019-11-11] MEDS: HYDROcodone/Acetaminophen 5/325 mg Tablet PO PRN ×3 (04:46→18:11)
[2019-11-11] MEDS: Lactated Ringer's 1,000 ML IV SCH ×2 (06:06→15:14)
[2019-11-11 06:49] LABS: #Eosinphils 0.1 thou/uL (0.0-0.7); #Lymphocytes 0.9 thou/uL (1.20-3.40); #Monocytes 0.7 thou/uL (0.11-0.59); #Neutrophils 6.6 thou/uL (1.40-6.50); %Basophils 0.1 % (0.0-1.0); %Eosinophils 0.9 % (0.0-10.0); %Lymphocytes 10.5 % (21.0-51.0); %Monocytes 7.9 % (0.0-10.0); %Neutrophils 80.6 % (42.0-75.0); Hemoglobin 9.9 g/dL (12.0-16.0); Mean Corpuscular HGB CONC 33.2 g/dL (32.0-36.0); Mean Corpuscular Hemoglobin 27.9 pg (27.0-31.0); Mean Corpuscular Volume 84.2 fL (78.0-98.0); Mean Platelet Volume 7.8 fL (7.4-10.4); Platelet Count 290 thou/uL (130-400); RBC Distribution Width 12.1 % (11.5-14.5); Red Blood Cell (RBC) Count 3.54 mill/uL (4.20-5.40); White Blood Cell (WBC) Count 8.2 thou/uL (4.8-10.8)
[2019-11-11] MEDS ORDERED: HYDROcodone/Acetaminophen 5/325 mg Tablet PO PRN (07:40)
--- NOTE | 2019-11-11 08:01 | PDOC.PP ---
Post Progress Note Post Day #: 1 Subjective: No concerns. Pain moderate this am, awaiting meds. Report moderate-light lochia. Voiding. Bottle feeding, desires to breast feed as well, pumping. No seizures or preE sx. PO intake tolerated: yes Flatus: yes Ambulation: yes Vital Signs (12 hours) Temp Pulse Resp BP BP Pulse Ox 11/11/19 04:40 97.7 F 78 14 134/77 100 11/11/19 00:35 97.5 F L 95 14 123/68 97 11/10/19 20:01 98.3 F 105 H 16 120/74 98 Weight Weight 206 lb - Physical Examination General: NAD Cardiovascular: RRR Respiratory: non-labored breathing Abdominal: no distention, appropriately TTP Fundus firm & at: below umbilicus Extremities: negative homans (B) Skin: no rash Deviation from normal: Dressing c/d/i Neurological: no gross focal deficits Psychiatric: A&Ox3, normal affect Result Diagrams: 11/11/19 06:28 Additional Labs: Post Labs Blood Type A POSITIVE 11/10/19 11:02 Hep Bs Antigen Non-Reactive S/CO (NonReactive) 11/10/19 06:11 (1) Anemia Code(s): D64.9 - ANEMIA, UNSPECIFIED Status: Acute Qualifiers: Anemia type: iron deficiency Iron deficiency anemia type: unspecified iron deficiency Qualified Code(s): D50.9 - Iron deficiency anemia, unspecified (2) Status post bilateral salpingectomy Code(s): Z90.79 - ACQUIRED ABSENCE OF OTHER GENITAL ORGAN(S) Status: Acute (3) delivery delivered Code(s): O82 - ENCOUNTER FOR DELIVERY WITHOUT INDICATION Status: Acute (4) Chronic hypertension Code(s): I10 - ESSENTIAL (PRIMARY) HYPERTENSION Status: Acute (5) Seizure disorder Code(s): G40.909 - EPILEPSY, UNSP, NOT INTRACTABLE, WITHOUT STATUS EPILEPTICUS Status: Acute - Assessment/Plan PPD1 VSSAF Anemia chronic + acute, Fe supplement. Continue pain meds PRN Continue keppra PP Plan for d/c 1-2 days due to CS
[2019-11-11] MEDS: levETIRAcetam 500 MG TAB PO SCH (09:21)
[2019-11-11] MEDS: Docusate Calcium (SURFAK) 240 MG CAP PO SCH ×2 (09:22→22:44)
[2019-11-11] MEDS: Ferrous Sulfate 325 MG TAB PO SCH ×2 (09:22→22:43)
[2019-11-11] MEDS: Prenatal Vitamin 1 TAB PO SCH (09:23)
[2019-11-11] MEDS ORDERED: Hydrocerin (Eucerin) Cream 120 gm Jar TOP PRN (11:45)
[2019-11-12] MEDS: Lactated Ringer's 1,000 ML IV SCH ×2 (01:09→18:43)
[2019-11-12] MEDS: Ibuprofen 800 MG TAB PO SCH ×3 (05:59→22:29)
--- NOTE | 2019-11-12 06:02 | PDOC.PP ---
Post Progress Note Post Day #: 2 Subjective: No concerns. pain controlled. Minimal lochia. Bottle feeding. PO intake tolerated: yes Flatus: yes Ambulation: yes Vital Signs (12 hours) Temp Pulse Resp BP Pulse Ox 11/11/19 20:24 98.3 F 97 12 113/57 L 97 Weight Weight 206 lb - Physical Examination General: NAD Cardiovascular: RRR Respiratory: non-labored breathing Abdominal: no distention, appropriately TTP Fundus firm & at: below umbilicus Extremities: negative homans (B) Skin: CS incision dry & intact, no rash Neurological: no gross focal deficits Psychiatric: A&Ox3, normal affect Result Diagrams: 11/11/19 06:28 Additional Labs: Post Labs Blood Type A POSITIVE 11/10/19 11:02 Hep Bs Antigen Non-Reactive S/CO (NonReactive) 11/10/19 06:11 (1) Anemia Code(s): D64.9 - ANEMIA, UNSPECIFIED Status: Acute Qualifiers: Anemia type: iron deficiency Iron deficiency anemia type: unspecified iron deficiency Qualified Code(s): D50.9 - Iron deficiency anemia, unspecified (2) Status post bilateral salpingectomy Code(s): Z90.79 - ACQUIRED ABSENCE OF OTHER GENITAL ORGAN(S) Status: Acute (3) delivery delivered Code(s): O82 - ENCOUNTER FOR DELIVERY WITHOUT INDICATION Status: Acute (4) Chronic hypertension Code(s): I10 - ESSENTIAL (PRIMARY) HYPERTENSION Status: Acute (5) Seizure disorder Code(s): G40.909 - EPILEPSY, UNSP, NOT INTRACTABLE, WITHOUT STATUS EPILEPTICUS Status: Acute - Assessment/Plan PPD2 VSSAF Continue PP Care and Fe Plan for d/c today pending d/c
[2019-11-12] MEDS: Prenatal Vitamin 1 TAB PO SCH (08:38)
[2019-11-12] MEDS: Docusate Calcium (SURFAK) 240 MG CAP PO SCH ×2 (08:38→22:29)
[2019-11-12] MEDS: Ferrous Sulfate 325 MG TAB PO SCH ×2 (08:39→22:29)
[2019-11-12] MEDS: levETIRAcetam 500 MG TAB PO SCH (08:39)
[2019-11-12] MEDS: HYDROcodone/Acetaminophen 5/325 mg Tablet PO PRN (18:39)
[2019-11-13] MEDS: Lactated Ringer's 1,000 ML IV SCH (04:59)
[2019-11-13] MEDS: Ibuprofen 800 MG TAB PO SCH ×2 (04:59→14:13)
[2019-11-13] MEDS: Docusate Calcium (SURFAK) 240 MG CAP PO SCH (08:34)
[2019-11-13] MEDS: Ferrous Sulfate 325 MG TAB PO SCH (08:34)
[2019-11-13] MEDS: levETIRAcetam 500 MG TAB PO SCH (08:35)
[2019-11-13] MEDS: Prenatal Vitamin 1 TAB PO SCH (08:35)
[2019-11-13 09:00] VITALS: BP 129/70; TEMP 98.6
--- NOTE | 2019-11-13 09:09 | PDOC.PP ---
Post Progress Note Post Day #: 3 Subjective: D/C held for yesterday. No concerns. Minimal pain and lochia. Breast feeding, infant doing well per pt. PO intake tolerated: yes Flatus: yes Ambulation: yes Vital Signs (12 hours) Temp Pulse Resp BP Pulse Ox 11/13/19 08:00 98.6 F 78 18 129/70 97 11/13/19 07:35 97 Weight Weight 206 lb - Physical Examination General: NAD Cardiovascular: RRR Respiratory: non-labored breathing Abdominal: no distention, appropriately TTP Fundus firm & at: below umbilicus Extremities: negative homans (B) Skin: CS incision dry & intact, no rash Neurological: no gross focal deficits Psychiatric: A&Ox3, normal affect Result Diagrams: 11/11/19 06:28 Additional Labs: Post Labs Blood Type A POSITIVE 11/10/19 11:02 Hep Bs Antigen Non-Reactive S/CO (NonReactive) 11/10/19 06:11 (1) Anemia Code(s): D64.9 - ANEMIA, UNSPECIFIED Status: Acute Qualifiers: Anemia type: iron deficiency Iron deficiency anemia type: unspecified iron deficiency Qualified Code(s): D50.9 - Iron deficiency anemia, unspecified (2) Status post bilateral salpingectomy Code(s): Z90.79 - ACQUIRED ABSENCE OF OTHER GENITAL ORGAN(S) Status: Acute (3) delivery delivered Code(s): O82 - ENCOUNTER FOR DELIVERY WITHOUT INDICATION Status: Acute (4) Chronic hypertension Code(s): I10 - ESSENTIAL (PRIMARY) HYPERTENSION Status: Acute (5) Seizure disorder Code(s): G40.909 - EPILEPSY, UNSP, NOT INTRACTABLE, WITHOUT STATUS EPILEPTICUS Status: Acute - Assessment/Plan PPD2 VSSAF Continue PP Care and Fe Plan for d/c today
== END 2019-11-13 14:40 | disposition home or self-care (01) | DRG 784 ==
LOC: L&D 05:22 → 3SW 10:23
PROVIDERS: ADMIT Obstetrics & Gynecology; ATTEND Obstetrics & Gynecology
PROC: 10D00Z1 Extraction of Products of Conception, Low, Open Approach (ICD-10-PCS; principal; 2019-11-10)
PROC: 0UT70ZZ Resection of Bilateral Fallopian Tubes, Open Approach (ICD-10-PCS; 2019-11-10)
DX: O34.211 Maternal care for low transverse scar from previous cesarean delivery (principal); O99.354 Diseases of the nervous system complicating childbirth; O10.92 Unspecified pre-existing hypertension complicating childbirth; D61.09 Other constitutional aplastic anemia; Z37.0 Single live birth; Z3A.37 37 weeks gestation of pregnancy; G40.909 Epilepsy, unspecified, not intractable, without status epilepticus; O99.02 Anemia complicating childbirth; O36.8930 Maternal care for other specified fetal problems, third trimester, not applicable or unspecified; J45.909 Unspecified asthma, uncomplicated; O99.513 Diseases of the respiratory system complicating pregnancy, third trimester; D50.9 Iron deficiency anemia, unspecified; Z79.899 Other long term (current) drug therapy; Z30.2 Encounter for sterilization
CPT/HCPCS: 36415; 51702; 85025; 85027; 86780; 86850; 86900; 86901; 87340; 87389; 88302; J1200; J1580; J1885; J2274; J2405; J2590; J2765; J3490; Q0163; S0028

== ENCOUNTER 2022-07-17 03:46 | Emergency (ER) | payer BC, OTHER ==
[2022-07-17] MEDS ORDERED: Acetaminophen 500 MG TAB ONE (04:33)
[2022-07-17] MEDS ORDERED: Ketorolac Tromethamine 30 MG/ML VIAL ONE (04:33)
[2022-07-17 04:37] LABS: #Eosinphils 0.1 thou/uL (0.0-0.7); #Lymphocytes 0.7 thou/uL (1.20-3.40); #Monocytes 0.3 thou/uL (0.11-0.59); #Neutrophils 7.7 thou/uL (1.40-6.50); %Basophils 0.1 % (0.0-1.0); %Eosinophils 0.8 % (0.0-10.0); %Lymphocytes 7.4 % (21.0-51.0); %Monocytes 3.8 % (0.0-10.0); %Neutrophils 87.9 % (42.0-75.0); Mean Corpuscular HGB CONC 33.3 g/dL (32.0-36.0); Mean Corpuscular Hemoglobin 28.4 pg (27.0-31.0); Mean Corpuscular Volume 85.4 fl (78.0-98.0); Mean Platelet Volume 7.4 fL (7.4-10.4); Platelet Count 354 thou/uL (130-400); RBC Distribution Width 11.9 % (11.5-14.5); Red Blood Cell (RBC) Count 4.57 mill/uL (4.20-5.40); White Blood Cell (WBC) Count 8.8 thou/uL (4.8-10.8)
[2022-07-17 05:16] LABS: BHCG - Serum Negative (NEGATIVE); Pregs Control Background? CLEAR/WHITE (CLR/WHITE); Pregs Control Bar Appear? YES (CONTROL BAR)
[2022-07-17 05:28] LABS: ALT (SGPT) 19 U/L (8-55); AST (SGOT) 19 U/L (5-34); Albumin 4.2 g/dL (3.5-5.0); Alkaline Phosphatase 69 U/L (40-110); Anion Gap 14 mmol/L (10-20); BUN (Urea Nitrogen) 11 mg/dL (7.0-18.7); Bilirubin, Total 0.8 mg/dL (0.2-1.2); Calc. Creatinine Clearance 0 mL/min (70-130); Calcium 9.3 mg/dL (7.8-10.44); Carbon Dioxide 19 mmol/L (22-29); Chloride 105 mmol/L (98-107); Estimated GFR 96; Globulin 3.4 g/dL (2.4-3.5); Glucose 108 mg/dL (70-105); Potassium 3.8 mmol/L (3.5-5.1); Protein, Total 7.6 g/dL (6.0-8.3); Sodium 134 mmol/L (136-145)
[2022-07-17] MEDS ORDERED: levETIRAcetam 500 MG TAB PO SCH (06:30)
[2022-07-17 08:11] LABS: SARS-CoV-2 NAA Rapid Test Not Detected (NotDetected)
== END 2022-07-17 09:29 | disposition home or self-care (01) ==
LOC: ERS 03:46
DX: R56.9 Unspecified convulsions (principal); J10.1 Influenza due to other identified influenza virus with other respiratory manifestations; J45.909 Unspecified asthma, uncomplicated; I10 Essential (primary) hypertension; Z20.822 Contact with and (suspected) exposure to COVID-19
CPT/HCPCS: 36415; 70450; 71045; 80053; 80177; 84703; 85025; 93005; 96374; J1885

== ENCOUNTER 2023-01-11 09:41 | Outpatient (CLI) | payer OTHER | END 2023-01-11 09:42 | disposition home or self-care (01) | LOC: SCSMRI 09:41 → EDSTATUS 10:30 | PROVIDERS: ATTEND Physician Assistant Medical | DX: M25.562 Pain in left knee (principal); S83.512A Sprain of anterior cruciate ligament of left knee, initial encounter; S83.282A Other tear of lateral meniscus, current injury, left knee, initial encounter; S83.242A Other tear of medial meniscus, current injury, left knee, initial encounter; M22.42 Chondromalacia patellae, left knee ==